=== PATIENT | female | born 1950 | race Caucasian/White ===

== ENCOUNTER → 2023-08-03 | Outpatient (CLI) | LOC: M SOG 07:53 | PROVIDERS: ATTEND Physician Assistant | DX: M25.461 Effusion, right knee (principal) ==

== ENCOUNTER → 2023-08-20 | Outpatient (CLI) | payer MEDICARE | LOC: M SOG 07:55 | PROVIDERS: ATTEND Physician Assistant | DX: S82.001A Unspecified fracture of right patella, initial encounter for closed fracture (principal) ==